=== PATIENT | female | born 1955 | race Caucasian/White ===

== ENCOUNTER 2016-12-08 15:57 | Emergency (ER) | payer OTHER ==
[~2016-12-08] VITALS: Ht 154.9 cm; Wt 80.0 kg
[~2016-12-08 15:57] MED LIST: HYDR-4446 PO; KEFSUS PO
[2016-12-08 16:43] VITALS: BP 126/75
[2016-12-08 18:27] LABS: BASOPHILS # (AUTO) 0.2 K/uL (0.00-0.22); BASOPHILS % (AUTO) 1.5 % (0.0-2.0); EOSINOPHILS # (AUTO) 0.4 K/uL (0-0.4); HEMATOCRIT 43.1 % (36-48); HEMOGLOBIN 13.8 g/dL (12.0-16.0); LYMPHOCYTES # (AUTO) 3.2 K/uL (2.5-16.5); LYMPHOCYTES % (AUTO) 29.3 % (20.5-51.1); MEAN CORPUSCULAR HEMOGLOBIN 25 pg (27-31); MEAN CORPUSCULAR HGB CONC 32 g/dL (33-37); MEAN CORPUSCULAR VOLUME 78 fL (80-94); MONOCYTES # (AUTO) 0.5 K/uL (0.8-1.0); MONOCYTES % (AUTO) 4.5 % (1.7-9.3); NEUTROPHILS # (AUTO) 6.6 K/uL (1.8-7.7); NEUTROPHILS % (AUTO) 60.7 % (42.2-75.2); PLATELET COUNT (AUTO) 243 K/uL (140-450); RED BLOOD CELL COUNT(AUTO) 5.51 MIL/uL (4.20-5.40); RED CELL DISTRIBUTION WIDTH 13.9 % (11.6-13.7); WHITE BLOOD COUNT (AUTO) 10.9 K/uL (4.8-10.8)
[2016-12-08 18:29] LABS: APPEARANCE,URINE CLEAR (CLEAR); BILIRUBIN,URINE NEGATIVE (NEGATIVE); COLOR,URINE YELLOW (YELLOW); LEUKOCYTE ESTERASE ,URINE NEGATIVE (NEGATIVE); NITRITE, URINE NEGATIVE (NEGATIVE); PH,URINE 7.5 (5.0-9.0); UGLUCOSE NEGATIVE (NEGATIVE)
[2016-12-08 18:32] LABS: BLOOD, URINE NEGATIVE (NEGATIVE)
[2016-12-08 18:38] LABS: ANION GAP 11.6 (8-16); CARBON DIOXIDE 28.2 mmol/L (21-32); POTASSIUM 3.8 mmol/L (3.5-5.1)
[2016-12-08 18:46] LABS: ALBUMIN 3.9 g/dL (3.4-5.0); TOTAL BILIRUBIN 0.5 mg/dL (0.0-1.0)
[2016-12-08] MEDS ORDERED: HYDROmorphone 1 MG/ML AMP IVP ONE ×2 (20:55→22:35)
[2016-12-08] MEDS ORDERED: KETOROLAC 60 MG/2 ML VIAL IM ONE (20:55)
[2016-12-08 23:30] VITALS: BP 128/75
== END 2016-12-08 23:30 | disposition home or self-care (01) ==
LOC: MED 15:57
DX: N20.0 Calculus of kidney (principal); K59.00 Constipation, unspecified; J45.909 Unspecified asthma, uncomplicated; Z91.012 Allergy to eggs; Z91.018 Allergy to other foods; Z79.899 Other long term (current) drug therapy; Z90.49 Acquired absence of other specified parts of digestive tract
CPT/HCPCS: 36415; 74176; 80053; 81003; 81025; 83690; 85025; 96372; 96374; 96376; 99285; J1170; J1885

== ENCOUNTER 2018-09-26 16:28 | Emergency (ER) | payer OTHER ==
[~2018-09-26] VITALS: Ht 157.5 cm; Wt 83.0 kg
[~2018-09-26 16:28] MED LIST changes: +ACET-8386 PO; -HYDR-4446 PO
[2018-09-26 16:36] VITALS: BP 154/102
--- NOTE | 2018-09-26 16:42 | NUR ---
PT TO [facility]. PT [id number]. FULL AND COMPLETE SPEECH. STIFF WALK NOTED.
--- NOTE | 2018-09-26 18:02 | NUR ---
PT AMB TO BED 11
--- NOTE | 2018-09-26 18:22 | NUR ---
PT BIB SELF TO THE ED WITH THE CHIEF C/O LLQ ABDOMINAL PAIN RADIATING TO LOWER BACK FOR A MONTH. HAD NORMAL BM TODAY. DENIES FALL. DENIES BURNING OR FREQUENCY OF URINATION. DENIES RECENT FEVER, N/V/D. NAUSEATED AT THIS TIME. STATES PAIN OF 9/10 AT THIS TIME.
--- NOTE | 2018-09-26 18:40 | NUR ---
BACK FROM CT.
[2018-09-26 18:59] LABS: BASOPHILS # (AUTO) 0.1 K/uL (0.00-0.22); BASOPHILS % (AUTO) 1.2 % (0.0-2.0); EOSINOPHILS # (AUTO) 0.4 K/uL (0-0.4); EOSINOPHILS % (AUTO) 4.4 % (0.0-4.0); HEMATOCRIT 41.8 % (36-48); HEMOGLOBIN 13.5 g/dL (12.0-16.0); LYMPHOCYTES # (AUTO) 3.1 K/uL (2.5-16.5); LYMPHOCYTES % (AUTO) 33.8 % (20.5-51.1); MEAN CORPUSCULAR HEMOGLOBIN 25 pg (27-31); MEAN CORPUSCULAR HGB CONC 32 g/dL (33-37); MEAN CORPUSCULAR VOLUME 78.4 fL (80-94); MONOCYTES # (AUTO) 0.7 K/uL (0.8-1.0); MONOCYTES % (AUTO) 7.4 % (1.7-9.3); NEUTROPHILS # (AUTO) 4.9 K/uL (1.8-7.7); NEUTROPHILS % (AUTO) 53.2 % (42.2-75.2); PLATELET COUNT (AUTO) 241 K/uL (140-450); RED BLOOD CELL COUNT(AUTO) 5.34 MIL/uL (4.20-5.40); RED CELL DISTRIBUTION WIDTH 14.8 % (11.6-13.7); WHITE BLOOD COUNT (AUTO) 9.2 K/uL (4.8-10.8)
[2018-09-26 19:11] LABS: APPEARANCE,URINE CLEAR (CLEAR); BILIRUBIN,URINE 1+ (NEGATIVE); BLOOD, URINE 1+ (NEGATIVE); COLOR,URINE YELLOW (YELLOW); LEUKOCYTE ESTERASE ,URINE TRACE (NEGATIVE); NITRITE, URINE NEGATIVE (NEGATIVE); UGLUCOSE NEGATIVE (NEGATIVE)
--- NOTE | 2018-09-26 19:14 | NUR ---
REPORT GIVEN TO ICE GUARD TESTER RN FOR CONTINUITY OF CARE.
[2018-09-26 19:19] LABS: ANION GAP 10.9 (8-16); CARBON DIOXIDE 29.8 mmol/L (21-32); CREATININE 0.8 mg/dL (0.6-1.3); POTASSIUM 3.7 mmol/L (3.5-5.1)
--- NOTE | 2018-09-26 19:19 | NUR ---
ASSUMED CARE OF PT FROM ANDRY MALIN.
[2018-09-26] MEDS ORDERED: HYDROcodone/APAP 5/325 MG 1 TAB TAB PO ONE (19:20)
[2018-09-26] MEDS ORDERED: KETOROLAC 60 MG/2 ML VIAL IM ONE (19:20)
[2018-09-26 19:25] LABS: ALBUMIN 3.9 g/dL (3.4-5.0); TOTAL BILIRUBIN 0.5 mg/dL (0.0-1.0)
[2018-09-26 19:35] LABS: RBC,URINE 0-5 /HPF (0-5); WBC,URINE 0-5 /HPF (0-5)
[2018-09-26 20:12] VITALS: BP 161/98
--- NOTE | 2018-09-26 20:13 | NUR ---
Patient discharged with v/s stable. Written and verbal after care instructions given and explained. Patient alert, oriented and verbalized understanding of instructions. Ambulatory with steady gait. All questions addressed prior to discharge. ID band removed. Patient advised to follow up with PMD. Rx of NAPROCYN, NORCO, KEFLEX given. Patient educated on indication of medication including possible reaction and side effects. Opportunity to ask questions provided and answered.
== END 2018-09-26 20:13 | disposition home or self-care (01) ==
LOC: MED 16:28
DX: M54.32 Sciatica, left side (principal); N12 Tubulo-interstitial nephritis, not specified as acute or chronic; Z90.710 Acquired absence of both cervix and uterus; Z90.49 Acquired absence of other specified parts of digestive tract; Z98.890 Other specified postprocedural states; Z91.018 Allergy to other foods; Z79.899 Other long term (current) drug therapy
CPT/HCPCS: 36415; 74176; 80053; 81001; 83690; 85025; 96372; 99284; J1885

== ENCOUNTER 2019-12-23 14:24 | Emergency (ER) | payer OTHER ==
[~2019-12-23] VITALS: Ht 152.4 cm; Wt 80.7 kg
[2019-12-23 14:29] VITALS: BP 146/78
--- NOTE | 2019-12-23 14:40 | NUR ---
PT C/O RIGHT MID BACK PAIN THAT BEGAN 1 WEEK AGO AND PROGRESSIVELY GETTING WORSE, PAIN 7/10 SHARP "NEEDLES AND PINS" PAIN. DENIES TINGLING OR NUMBNESS ON THE RIGHT ARM. REDUCED ROM OF RIGHT ARM, PT STATES THAT IS DUE TO HER ARTHRITIS. PT DENIES TAAUMA/IMJURY, HEAVY LIFTTING. NO RASH NOTICED ON THE PAINFUL AREA, REPORTS HAD SHINGLES VACCINE LAST YEAR.
[2019-12-23] MEDS ORDERED: KETOROLAC 30 MG/ML VIAL ONE (15:11)
[2019-12-23] MEDS ORDERED: KETOROLAC 30 MG/ML VIAL IM ONE (15:25)
[2019-12-23 15:27] VITALS: BP 146/78
--- NOTE | 2019-12-23 15:27 | NUR ---
Patient discharged with v/s stable. Written and verbal after care instructions given and explained. Patient alert, oriented and verbalized understanding of instructions. Ambulatory with steady gait. All questions addressed prior to discharge. ID band removed. Patient advised to follow up with PMD. Rx of Flexeril 5mg given. Patient educated on indication of medication including possible reaction and side effects. Opportunity to ask questions provided and answered.
== END 2019-12-23 15:27 | disposition home or self-care (01) ==
LOC: MED 14:24
DX: S39.012A Strain of muscle, fascia and tendon of lower back, initial encounter (principal); M19.90 Unspecified osteoarthritis, unspecified site; Z79.899 Other long term (current) drug therapy; Z91.012 Allergy to eggs; X50.9XXA Other and unspecified overexertion or strenuous movements or postures, initial encounter; Y93.89 Activity, other specified; Y92.89 Other specified places as the place of occurrence of the external cause; Y99.8 Other external cause status
CPT/HCPCS: 81002; 96372; 99283; J1885